=== PATIENT | female | born 1995 | race Caucasian/White ===

== ENCOUNTER 2017-05-04 23:15 | Emergency (ER) | payer OTHER ==
[~2017-05-04] VITALS: Ht 167.6 cm; Wt 68.0 kg
[2017-05-04 23:29] VITALS: BP 109/74
[2017-05-04] MEDS: LIDO:MAALOX 1:1 20 ML SINGLE DOSE PO ONE ×2 (23:36→23:37)
[2017-05-04] MEDS ORDERED: ONDANSETRON ODT 4 MG TAB.RAPDIS PO ONE (23:45)
--- NOTE | 2017-05-05 00:38 | PHYS DOC ---
Past History Past Medical History: Asthma Alcohol Use: None Drug Use: None Adult General Chief Complaint Chief Complaint: NAUSEA/VOMITING/DIARRHEA HPI HPI Patient is a 21 year old F who presents with nausea/vomiting and diarrhea that started today. She denies abdominal pain. She denies any other associated symptoms. She feels that eating and drinking make her symptoms worse. She has no known alleviating factors. Her last period was approximately 4 weeks ago. She is sexually active but does use contraception Review of Systems Review of Systems Constitutional: Denies fever or chills [] Eyes: Denies change in visual acuity, redness, or eye pain [] HENT: Denies nasal congestion or sore throat [] Respiratory: Denies cough or shortness of breath [] Cardiovascular: No additional information not addressed in HPI [] GI: Negative except history of present illness : Denies dysuria or hematuria [] Musculoskeletal: Denies back pain or joint pain [] Integument: Denies rash or skin lesions [] Neurologic: Denies headache, focal weakness or sensory changes [] Endocrine: Denies polyuria or polydipsia [] All other systems were reviewed and found to be within normal limits, except as documented in this note. Family History Family History No pertinent family medical history was reported Current Medications Current Medications Current Medications Medications (Trade) Dose Ordered Sig/Sharmaine Start Time Stop Time Status Last Admin Dose Admin Multi-Ingredient Mouthwash/Gargle (Gi Cocktail) 20 ml 1X ONCE 05/04/17 23:45 05/04/17 23:45 DC Ondansetron HCl (Zofran Odt) 4 mg 1X ONCE 05/04/17 23:45 05/04/17 23:46 DC 05/04/17 23:36 4 MG Allergies Allergies Allergies Coded Allergies Type Severity Reaction Last Updated Verified amoxicillin Allergy Intermediate 05/04/17 Yes clavulanic acid Allergy Intermediate 05/04/17 Yes Physical Exam Physical Exam Constitutional: Well developed, well nourished, no acute distress, non-toxic appearance. [] HENT: Normocephalic, atraumatic, Eyes: EOMI, conjunctiva normal, no discharge. [] Neck: Normal range of motion, no tenderness, supple, no stridor. [] Cardiovascular:Heart rate regular rhythm, Lungs & Thorax: Bilateral breath sounds clear to auscultation [] Abdomen: Bowel sounds normal, soft, no tenderness, no masses, no pulsatile masses. [] Back: No tenderness, no CVA tenderness. [] Extremities: No tenderness, no cyanosis, no clubbing, ROM intact, no edema. [] Neurologic: Alert and oriented X 3, normal motor function, normal sensory function, no focal deficits noted. [] Psychologic: Affect normal, judgement normal, mood normal. [] Current Patient Data Vital Signs Vital Signs Date Time Temp Pulse Resp B/P (MAP) Pulse Ox O2 Delivery O2 Flow Rate FiO2 05/04/17 23:29 98.3 114 20 99 Room Air Lab Results Laboratory Tests Test 05/05/17 00:23 POC Urine HCG, Qualitative hcg negative (Negative) EKG EKG [] Radiology/Procedures Radiology/Procedures [] Course & Med Decision Making Course & Med Decision Making Pertinent Labs and Imaging studies reviewed. (See chart for details) Labs and imaging were declined Dragon Disclaimer Dragon Disclaimer This electronic medical record was generated, in whole or in part, using a voice recognition dictation system. Departure Departure: Impression: Primary Impression: Viral gastroenteritis Disposition: 01 HOME, SELF-CARE Condition: STABLE Referrals: NICKOLAS MANZANO DO (PCP) Patient Instructions: Viral Gastroenteritis Additional Instructions: Ruchi was seen in the emergency department for nausea/vomiting and diarrhea. No emergency medical condition was found on history or physical exam. She was treated with nausea medication and was able to tolerate oral fluids. She is advised to return the emergency room if she develops new or worsening symptoms. She was also advised follow-up with her primary care doctor as needed for further management Scripts Ondansetron (ZOFRAN ODT) 4 Mg Tab.rapdis 1 TAB SL Q8HRS, #15 TAB Prov: SHAISTA TRENT MD 05/05/17 SHAISTA TRENT MD May 05, 2017 00:38
[2017-05-05] MEDS ORDERED: ONDA4TAB10 SL (01:00)
== END 2017-05-05 01:00 | disposition home or self-care (01) ==
LOC: ER 23:15
DX: A08.4 Viral intestinal infection, unspecified (principal); J45.909 Unspecified asthma, uncomplicated
CPT/HCPCS: 81025; 99283; Q0162